=== PATIENT | male | born 1960 | race Hispanic/Latino ===

== ENCOUNTER 2016-12-12 04:22 | Emergency (ER) | payer OTHER ==
[2016-12-12 04:45] VITALS: BP 125/46; PULSE 98; RESP 18; TEMP 97.3; O2SAT 100
[2016-12-12] MEDS ORDERED: Multivitamin (MVI) 10 ML, Folic Acid 1 MG, Thiamine 100 MG in Dextrose 5%/0.45% NS 1,00... IV ONE (04:53)
--- NOTE | 2016-12-12 05:06 | ED PDOC ---
Upper Extremity Pain/Injury Chief Complaint (Provider): Right hand numbness History Per: Patient History/Exam Limitations: no limitations Onset/Duration Of Symptoms: Hrs (Symptoms start 1 hr ago.) Current Symptoms Are (Timing): Still Present Additional History Per: Patient Additional Complaint(s): CC: R hand numbness. HPI: 56 yo M patient without PMH presents to the ED complaining of R hand numbness that start like 1 hour ago while hi was sleeping. No other symptoms associated. Denies nausea, vomiting, headache, blurred vision, fever, injury or recent trauma. ROS: negative except as above. 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 Allergies: NKA. Meds: none SH: smoker( 1 pack per day), alcohol(5-6 drinks daily), denies recreational drugs. <Ej Sumner - Last Filed: 12/12/16 04:55> <Александр Castillo - Last Filed: 12/13/16 02:50> Time Seen by Provider: 12/12/16 04:37 Chief Complaint (Nursing): Finger,Hand,&Wrist Past Medical History Reviewed: Nursing Documentation, Vital Signs Vital Signs: Last Vital Signs Temp 97.3 F L 12/12/16 04:42 Pulse 98 H 12/12/16 04:42 Resp 18 12/12/16 04:42 BP 125/46 L 12/12/16 04:42 Pulse Ox 100 12/12/16 04:42 - Medical History PMH: No Chronic Diseases - Surgical History Other surgeries: Left little finger distal phalange amputation. - Family History Family History: States: No Known Family Hx - Social History Current smoker - smoking cessation education provided: Yes SMOKER/PACKS PER DAY:: 1 Alcohol: > 2 Drinks/Day (5-6 drinks daily.) Drugs: Denies <Ej Sumner - Last Filed: 12/12/16 04:55> Vital Signs: Last Vital Signs Temp 97.3 F L 12/12/16 04:42 Pulse 98 H 12/12/16 04:42 Resp 18 12/12/16 04:42 BP 125/46 L 12/12/16 04:42 Pulse Ox 100 12/12/16 06:38 <Александр Castillo - Last Filed: 12/13/16 02:50> - Home Medications Home Medications: Ambulatory Orders Medication Instructions Recorded Naproxen [Naprosyn] 500 mg PO Q12 #14 tab 12/12/16 - Allergies Allergies/Adverse Reactions: Allergies Allergy/AdvReac Type Severity Reaction Status Date / Time No Known Allergies Allergy Verified 12/12/16 04:42 Review of Systems ROS Statement: Except As Marked, All Systems Reviewed And Found Negative Constitutional: Negative for: Fever, Chills, Sweats, Weakness, Malaise Eyes: Negative for: Pain, Vision Change ENT: Negative for: Ear Pain, Nose Pain, Mouth Pain, Throat Pain Cardiovascular: Negative for: Chest Pain, Palpitations, Edema, Light Headedness Respiratory: Negative for: Cough, Shortness of Breath Gastrointestinal: Negative for: Nausea, Vomiting, Abdominal Pain Genitourinary Male: Negative for: Dysuria Musculoskeletal: Positive for: Other (right wrist drop). Negative for: Neck Pain, Back Pain, Hand Pain Neurological: Positive for: Weakness (In right hand), Numbness, Other (Presents right wrist drop.). Negative for: Altered Mental Status Psych: Negative for: Anxiety, Depression <Ej Sumner - Last Filed: 12/12/16 04:55> Physical Exam - Reviewed Nursing Documentation Reviewed: Yes Vital Signs Reviewed: Yes - Physical Exam Appears: Positive for: Well, No Acute Distress Head Exam: Positive for: ATRAUMATIC, NORMOCEPHALIC Skin: Positive for: Normal Color, Warm, Dry. Negative for: Diaphoresis Eye Exam: Positive for: Normal appearance, EOMI, PERRL ENT: Positive for: Normal ENT Inspection Neck: Positive for: Normal, Supple Cardiovascular/Chest: Positive for: Regular Rate, Rhythm. Negative for: Murmur Respiratory: Positive for: Normal Breath Sounds Pulses-Carotid (L): 2+ Pulses-Carotid (R): 2+ Pulses-Dorsalis Pedis (L): 2+ Pulses-Dorsalis Pedis (R): 2+ Pulses-Femoral (L): 2+ Pulses-Femoral (R): 2+ Pulses-Post. Tibialis (L): 2+ Pulses-Post. Tibialis (R): 2+ Pulses-Radial (L): 2+ Pulses-Radial (R): 2+ Gastrointestinal/Abdominal: Positive for: Normal Exam, Bowel Sounds, Soft. Negative for: Tenderness Back: Positive for: Normal Inspection Extremity: Positive for: Normal ROM. Negative for: Tenderness, Calf Tenderness DTR - Knee (R): 2+ DTR - Knee (L): 2+ Neurologic/Psych: Positive for: Alert, data conversion developer II-XII, Oriented, Other (Sensation intact in four extremities, right hand weakness, right wrist drop.). Negative for: Facial Droop <Ej Sumner - Last Filed: 12/12/16 04:55> - ECG ECG: Positive for: Viewed By Nd ECG Rhythm: Positive for: Normal QRS, Normal ST Segment, Sinus Rhythm O2 Sat by Pulse Oximetry: 100 - Progress ED Course And Treament: Impression: 56 yo M patient without PMH presents to the ED complaining of R hand numbness and right wrist drop. Plan: CBC CMP TSH PT, PTT RPR Mg, serum Vit 12 blood level Alcohol blood level Urinalysis Drug screen, urine. EKG Head CT scan w/o contrast. Reevaluate. <Ej Sumner - Last Filed: 12/12/16 04:55> - Laboratory Results Result Diagrams: 12/12/16 05:10 12/12/16 05:10 <Александр Castillo - Last Filed: 12/13/16 02:50> Medical Decision Making Medical Decision Making: Time: 044 Impression: 56 yo M patient without PMH presents to the ED complaining of R hand numbness and right wrist drop. Plan: CBC CMP TSH PT, PTT RPR Mg, serum Vit 12 blood level Alcohol blood level Urinalysis Drug screen, urine. EKG Head CT scan w/o contrast. Reevaluate. <Ej Sumner - Last Filed: 12/12/16 04:55> Medical Decision Making: Patient is a 56 year old male with history of alcoholism who presents with acute right wrist droop. Presentation and clinical findings, labs and imaging are c/w acute radial nerve palsy in alcoholic. Splint and sling applied. Patient will f/u with Dr Sumner in [facility] and Dr Blandon. Dr Sumner will coordinate physiotherapy as outpatient. All results and findings communicated to patient by provider as well as need for alcohol cessation. <Александр Castillo - Last Filed: 12/13/16 02:50> Disposition - Patient ED Disposition Is Patient to be Admitted: No Counseled Patient/Family Regarding: Studies Performed, Diagnosis, Need For Followup, Smoking Cessation - Disposition Disposition: Routine/Home Disposition Time: 06:33 <Ej Sumner - Last Filed: 12/12/16 04:55> <Александр Castillo - Last Filed: 12/13/16 02:50> - Clinical Impression Clinical Impression: Acute radial nerve palsy of right upper extremity, Nerve palsy - Disposition Referrals: [facility] [Outside] Ej Sumner MD [Emergency Midlevel Provider] - Joao Blandon MD [Medical Doctor] - Condition: STABLE Additional Instructions: Followup with PCP in 2-3 days Return to ED for worsening symptoms or new symptoms. Prescriptions: Naproxen [Naprosyn] 500 mg PO Q12 #14 tab Instructions: Radial Nerve Palsy (ED), Stroke (GEN) Print Language: SLOVENIAN
[2016-12-12 05:27] LABS: BASO # 0.1 K/uL (0.0-0.2); BASO % 1.1 % (0.0-2.0); EOS # 0.2 K/uL (0.0-0.7); EOS % 2.3 % (0.0-4.0); HEMOGLOBIN 13.7 g/dL (12.0-18.0); LYMPH # 2.8 K/uL (1.0-4.3); LYMPH % 41.2 % (20.0-40.0); MEAN CELL VOLUME 99.3 fl (80.0-94.0); MEAN CORPUSCULAR HEMOGLOBIN 34.1 pg (27.0-31.0); MEAN CORPUSCULAR HGB CONC 34.4 g/dL (33.0-37.0); MEAN PLATELET VOLUME 7.8 fl (7.2-11.7); MONO # 0.6 K/uL (0.0-0.8); MONO % 9.1 % (0.0-10.0); NEUT # 3.1 K/uL (1.8-7.0); NEUT % 46.3 % (50.0-75.0); NRBC % 0.1 % (0.0-0.0); RBC 4.02 Mil/uL (4.40-5.90); RED CELL DISTRIBUTION WIDTH 13.6 % (11.5-14.5); WHITE BLOOD COUNT 6.8 K/uL (4.8-10.8)
[2016-12-12 05:44] LABS: SQUAMOUS EPITHIAL < 1 /hpf (0-5); URINE BILIRUBIN NEGATIVE (NEGATIVE); URINE BLOOD NEGATIVE (NEGATIVE); URINE CLARITY CLEAR (Clear); URINE COLOR STRAW (YELLOW); URINE GLUCOSE (UA) NEG (Normal); URINE LEUKOCYTE ESTERASE NEG Leu/uL (Negative); URINE NITRATE NEGATIVE (NEGATIVE); URINE PROTEIN NEGATIVE (NEGATIVE); URINE UROBILINOGEN 0.2-1.0 mg/dL (0.2-1.0)
[2016-12-12 05:54] LABS: ALBUMIN 4.2 g/dL (3.5-5.0)
[2016-12-12 05:57] LABS: ALB/GLOB RATIO 1.5 (1.0-2.1); ALT/SGPT 35 U/L (21-72); AST/SGOT 43 U/L (17-59); BLOOD UREA NITROGEN 10 mg/dl (9-20); GFR AFRICAN-AMERICAN > 60; GFR NON-AFRICAN AMERICAN > 60
[2016-12-12 05:58] LABS: CALCIUM 9.4 mg/dL (8.4-10.2); MAGNESIUM 2.1 MG/DL (1.6-2.3)
[2016-12-12 06:03] LABS: BARBITURATES, UR NEGATIVE (NEGATIVE)
[2016-12-12 06:04] LABS: BENZODIAZEPINES, UR NEGATIVE (NEGATIVE)
[2016-12-12 06:06] LABS: OPIATES, UR NEGATIVE (NEGATIVE)
[2016-12-12 06:07] LABS: PHENCYCLIDINE, UR NEGATIVE (NEGATIVE)
[2016-12-12 06:17] LABS: PARTIAL THROMBOPLASTIN TIME 31.1 Seconds (25.6-37.1); PROTHROMBIN TIME 11.7 Seconds (9.8-13.1)
--- NOTE | 2016-12-12 07:57 | CARD ---
APPROVED REPORT EKG Measurement Heart [id number] <Conclusion> Normal sinus rhythm Normal ECG
--- NOTE | 2016-12-12 09:10 | CT ---
PROCEDURE: CT HEAD WITHOUT CONTRAST. HISTORY: Right wrist droop COMPARISON: None available. TECHNIQUE: Axial computed tomography images were obtained through the head/brain without intravenous contrast. Radiation dose: Total exam DLP = 945.50 mGy-cm. This CT exam was performed using one or more of the following dose reduction techniques: Automated exposure control, adjustment of the mA and/or kV according to patient size, and/or use of iterative reconstruction technique. FINDINGS: HEMORRHAGE: No intracranial hemorrhage. BRAIN: Coyne-white matter differentiation is preserved. There is no mass, mass effect or abnormal extra-axial fluid collection. VENTRICLES: The ventricles are normal in size, shape and configuration. CALVARIUM: The skull base and calvarium are normal. PARANASAL SINUSES: Predominantly clear. MASTOID AIR CELLS: Predominantly clear. OTHER FINDINGS: None. IMPRESSION: No acute intracranial abnormality.
== END 2016-12-12 06:51 | disposition home or self-care (01) ==
LOC: H.ER 04:22
DX: G56.30 Lesion of radial nerve, unspecified upper limb (principal); R20.2 Paresthesia of skin; F17.210 Nicotine dependence, cigarettes, uncomplicated